=== PATIENT | male | born 1960 | race Caucasian/White ===

== ENCOUNTER → 2021-05-08 | Outpatient (CLI) ==
[~2021-05-08] MED LIST: ACET32TAB PO; AMLO1TAB24 PO; FLON1SPR; METO1TAB32 PO; OMEP40CA4 PO; ROSU10TA6 PO; VITMTA PO
== END ==
LOC: M LABSMTC 10:50
PROVIDERS: ATTEND Anesthesiology
DX: Z01.812 Encounter for preprocedural laboratory examination (principal); Z20.822 Contact with and (suspected) exposure to COVID-19

== ENCOUNTER 2021-05-13 11:13 | Day surgery (SDC) | payer BC ==
[~2021-05-13] VITALS: Ht 170.2 cm; Wt 69.4 kg
[~2021-05-13 11:13] MED LIST changes: +NS 1,000 ML IV ONE
[2021-05-13] MEDS ORDERED: propofoL 200 MG/20 ML VIAL As Ordered ONE ×2 (11:40→13:25)
[2021-05-13] MEDS ORDERED: LIDOCAINE 2% 100MG/5ML SDV (FOR ANES.) As Ordered ONE (11:40)
[2021-05-13] MEDS ORDERED: fentaNYL 100 MCG/2 ML INJECTION As Ordered ONE (13:01)
[2021-05-13 13:55] VITALS: BP 151/80
== END 2021-05-13 14:04 | disposition home or self-care (01) ==
LOC: M OPP 11:13
PROVIDERS: ATTEND Internal Medicine Gastroenterology
DX: K22.70 Barrett's esophagus without dysplasia (principal); K22.8 Other specified diseases of esophagus; K31.9 Disease of stomach and duodenum, unspecified; R12 Heartburn; Z79.899 Other long term (current) drug therapy
CPT/HCPCS: 43239; 43251; 88305; J3010